=== PATIENT | female | born 1990 | race Caucasian/White ===

== ENCOUNTER 2019-12-05 09:10 | Emergency (ER) | payer SELFPAY ==
--- NOTE | 2019-12-05 11:03 | ED.PDOC ---
History of Present Illness - General Chief Complaint: Problem Stated Complaint: green vaginal discharge Time Seen by Provider: 12/05/19 11:00 Source: patient Exam Limitations: no limitations - History of Present Illness Initial Comments: PT HAS HAD A NEW SEXUAL PARTNER PAST 1 1/2 MOS. FINISHED HER PERIOD 2 D AGO. THIS MORNING SHE REMOVED HER TAMPON AND NOTICED GREEN D/C. SHE HAD AHD 2 D DYSURIA LAST WEEK, THEN TOOK 2 D OF LEFTOVER AMOXIL RX THROUGH TODAY. DYSURIA RESOLVED. DENIES DYSPAREUNIA. NO PELVIC PAIN. Timing/Duration: this morning Quality: other - NO PAIN Onset Location: vaginal Radiation: none Activites at Onset: none Prior abdominal problems: none Sexual intercourse history: less than 2 months ago Improving Factors: nothing Worsening Factors: nothing Associated Symptoms: denies symptoms Allergies/Adverse Reactions: Allergies Cefprozil [From Cefzil] Allergy (Verified 12/05/19 09:26) Home Medications: Ambulatory Orders Multiple Vitamins W/ Minerals [Multivitamin Adults] 1 tab PO DAILY 12/05/19 Sulfa/Trimeth 800/160 (Ds) Tab [Bactrim DS Tab] 1 unit PO BID #6 tab 12/05/19 Review of Systems - Review of Systems Constitutional: States: no symptoms reported EENTM: States: no symptoms reported Respiratory: States: no symptoms reported Cardiology: States: no symptoms reported Gastrointestinal/Abdominal: States: no symptoms reported Genitourinary: Denies: dysuria, frequency, hematuria Musculoskeletal: States: no symptoms reported Skin: States: no symptoms reported Neurological: States: no symptoms reported Endocrine: States: no symptoms reported Hematologic/Lymphatic: States: no symptoms reported All other Systems: Reviewed and Negative Past Medical History (General) - Patient Medical History Hx Seizures: No Hx Stroke: No Hx Dementia: No Hx Asthma: No Hx of COPD: No Hx Cardiac Disorders: No Hx Congestive Heart Failure: No Hx Pacemaker: No Hx Hypertension: No Hx Thyroid Disease: No Hx Diabetes: No Hx Gastroesophageal Reflux: No Hx Renal Disease: No Hx Cancer: No Hx of HIV: No Hx Hepatitis C: No Hx MRSA: No Surgical History: no surgical history, appendectomy, tonsillectomy - Vaccination History Hx Tetanus, Diphtheria Vaccination: No Hx Influenza Vaccination: No Hx Pneumococcal Vaccination: No - Social History Hx Alcohol Use: No Hx Substance Use: No Hx Substance Use Treatment: No Hx Depression: No - Female History Patient is a Female of Child Bearing Age (10 -59 yrs old): Yes Hx Last Menstrual Period: 11/29/19 Family Medical History - Family History Sister Family History: Unknown Living Status: Still Living Hx Cardiac Disease: Yes Physical Exam - Physical Exam General Appearance: Alert, No apparent distress Eyes, Ears, Nose, Throat Exam: PERRL/EOMI, normal ENT inspection Neck: non-tender, full range of motion Cardiovascular/Respiratory: regular rate, rhythm, no M/R/G Gastrointestinal/Abdominal: normal bowel sounds, non tender, soft, no organomegaly, no pulsatile mass Pelvic Exam: external exam normal, speculum exam normal, bimanual exam normal, no cerv. motion tender, no masses Back Exam: normal inspection, no CVA tenderness Extremity: normal range of motion, normal inspection Neurologic: alert, normal mood/affect Skin Exam: normal color, warm/dry Lymphatic: no adenopathy Progress - Results/Orders Results/Orders: UA = UTI. LEUK EST, WBC, RARE BACTERIA. BACTRIM. HCG NEG. SPECULUM EXAM NEG - NO PAIN, NO D/C. WET PREP AND GC/CHLAMYDIA PENDING (SEND OUT). LOW SUSPICION FOR STD, THUS RX FOR UTI. SAFE FOR DC TO HOME. I INSTRUCTED PT TO CALL IN 3 D FOR LAB RESULTS IF SHE HAS NOT HEARD BACK FROM THE ER. - EKG/XRAY/CT CT Ordered: No CT Interpretation Call Back: No Departure - Departure Clinical Impression: Vaginal discharge, Dysuria UTI (urinary tract infection) Qualifiers: Urinary tract infection type: acute cystitis Hematuria presence: without hematuria Qualified Code(s): N30.00 - Acute cystitis without hematuria Disposition: Discharge to Home or Self Care Condition: Good Departure Forms: ED Discharge - Pt. Copy, Patient Portal Self Enrollment Diet: resume usual diet Activity: increase activity as tolerated Prescriptions: Sulfa/Trimeth 800/160 (Ds) Tab [Bactrim DS Tab] 1 unit PO BID #6 tab Home Medications: Ambulatory Orders Multiple Vitamins W/ Minerals [Multivitamin Adults] 1 tab PO DAILY 12/05/19 Sulfa/Trimeth 800/160 (Ds) Tab [Bactrim DS Tab] 1 unit PO BID #6 tab 12/05/19
[2019-12-05 12:36] VITALS: BP 115/71; TEMP 97.1; O2SAT 98
== END 2019-12-05 12:35 | disposition home or self-care (01) ==
LOC: ER 09:10
DX: N30.00 Acute cystitis without hematuria (principal); N89.8 Other specified noninflammatory disorders of vagina; Z88.1 Allergy status to other antibiotic agents

== ENCOUNTER 2019-12-11 10:18 | Emergency (ER) | payer SELFPAY ==
--- NOTE | 2019-12-11 10:23 | ED.PDOC ---
History of Present Illness - General Time Seen by Provider: 12/11/19 10:23 Source: patient - History of Present Illness Initial Comments: 29 [id number]-[id number]-one female who presents with chief complaint of abnormal STD testing. Patient was seen here on 12/07/2019 with symptoms of green vaginal discharge in setting of a new sexual partner. She had a pelvic exam and STD testing performed. Results of the STD tests came back today which was positive for gonorrhea in the cervical swabs, negative for chlamydia. She reports vaginal discharge as well scant and more yellow in color. She denies any pelvic pain, abdominal pain, fevers, chills, vaginal bleeding, nausea, vomiting, diarrhea, dysuria, hematuria. She was given a prescription of Keflex for possible UTI but did not receive any treatment for gonorrhea or chlamydia at the last visit. LMP was 2 weeks ago. Allergies/Adverse Reactions: Allergies Cefprozil [From Cefzil] Allergy (Verified 12/05/19 09:26) Home Medications: Ambulatory Orders Multiple Vitamins W/ Minerals [Multivitamin Adults] 1 tab PO DAILY 12/05/19 Sulfa/Trimeth 800/160 (Ds) Tab [Bactrim DS Tab] 1 unit PO BID #6 tab 12/05/19 Review of Systems - Review of Systems Review of Systems: 12/11/19 10:35 as per HPI All other Systems: Reviewed and Negative Past Medical History (General) - Patient Medical History Hx Seizures: No Hx Stroke: No Hx Dementia: No Hx Asthma: No Hx of COPD: No Hx Cardiac Disorders: No Hx Congestive Heart Failure: No Hx Pacemaker: No Hx Hypertension: No Hx Thyroid Disease: No Hx Diabetes: No Hx Gastroesophageal Reflux: No Hx Renal Disease: No Hx Cancer: No Hx of HIV: No Hx Hepatitis C: No Hx MRSA: No - Vaccination History Hx Tetanus, Diphtheria Vaccination: No Hx Influenza Vaccination: No Hx Pneumococcal Vaccination: No - Social History Hx Alcohol Use: No Hx Substance Use: No Hx Substance Use Treatment: No Hx Depression: No - Female History Hx Last Menstrual Period: 11/29/19 Family Medical History - Family History Sister Family History: Unknown Living Status: Still Living Hx Cardiac Disease: Yes Physical Exam - Physical Exam General Appearance: Alert, Comfortable, No apparent distress Eye Exam: bilateral normal Ears, Nose, Throat: normal ENT inspection, normal pharynx Neck: non-tender, full range of motion, supple, normal inspection Respiratory: lungs clear, normal breath sounds, no respiratory distress, no accessory muscle use Cardiovascular/Chest: normal peripheral pulses, regular rate, rhythm, no edema, no gallop, no JVD, no murmur Peripheral Pulses: radial,right: 2+, radial,left: 2+ Gastrointestinal/Abdominal: non tender, soft, no organomegaly Back Exam: normal inspection, no CVA tenderness, no vertebral tenderness Extremity: normal range of motion, non-tender, normal inspection, no pedal edema , no calf tenderness, normal capillary refill, pelvis stable Neurologic: no motor/sensory deficits, alert, normal mood/affect, oriented x 3 Skin Exam: normal color, warm/dry Lymphatic: no adenopathy Progress - Progress Progress: 12/11/19 10:36 Acute gonococcal cervicitis -pt declines repeat pelvic exam today, just would like to be treated -Given Rocephin 250 mg IM and Azithromycin 1 g PO for empiric treatment of both GC and chlamydia -advised sexual partner will also need to be seen and treated -dc to home in good condition, return warnings discussed at length. F/u closely with PCP & forestry support specialist recommended Pal Todd MD Billing #[id number] Departure - Departure Clinical Impression: Cervicitis, acute gonococcal Time of Disposition: 10:29 Disposition: Discharge to Home or Self Care Condition: Good Instructions: Gonorrhea (DC) Diet: resume usual diet Activity: increase activity as tolerated Home Medications: Ambulatory Orders Multiple Vitamins W/ Minerals [Multivitamin Adults] 1 tab PO DAILY 12/05/19 Sulfa/Trimeth 800/160 (Ds) Tab [Bactrim DS Tab] 1 unit PO BID #6 tab 12/05/19 Additional Instructions: Your sexual partner will also need to be seen and treated for possible gonorrhea infection. I recommend no sexual intercourse until your partner is also appropriately treated and you are both without symptoms. Otherwise return to the ED if any concerning symptoms develop such as worsening abdominal or pelvic pain, worsening vaginal discharge, fevers, chills, etc... Follow-up with your primary care physician and CHART WRITER as recommended in the next 1 to 2 weeks for r epeat evaluation or sooner as needed.
[2019-12-11] MEDS ORDERED: AZITHROMYCIN 250 MG TAB PO ONE (10:28)
[2019-12-11 10:38] VITALS: BP 115/81; TEMP 97.8; O2SAT 98
[2019-12-11] MEDS ORDERED: LIDOCAINE 1% 2 ML VIAL INJ ONE (10:43)
== END 2019-12-11 11:00 | disposition home or self-care (01) ==
LOC: ER 10:18
DX: A54.03 Gonococcal cervicitis, unspecified (principal); Z88.8 Allergy status to other drugs, medicaments and biological substances
CPT/HCPCS: J0696; Q0144

== ENCOUNTER 2020-04-10 19:19 | Emergency (ER) | payer SELFPAY ==
--- NOTE | 2020-04-10 20:06 | ED.PDOC ---
History of Present Illness - General Chief Complaint: General Time Seen by Provider: 04/10/20 19:59 Source: patient Exam Limitations: no limitations - History of Present Illness Initial Comments: EXPOSURE TO GC, ASSYMPTOMATIC AT PRESENT, RECCENTLY TREATED FOR GC, CURRENT PARTNER WITH SYMPTOMS OF SAME. Timing/Duration: week Quality: mild Onset Location: unknown Radiation: none Activites at Onset: none Prior abdominal problems: none Sexual intercourse history: multiple partners Improving Factors: nothing Worsening Factors: nothing Associated Symptoms: denies symptoms Allergies/Adverse Reactions: Allergies Cefprozil [From Cefzil] Allergy (Verified 12/05/19 09:26) Home Medications: Ambulatory Orders Multiple Vitamins W/ Minerals [Multivitamin Adults] 1 tab PO DAILY 12/05/19 Sulfa/Trimeth 800/160 (Ds) Tab [Bactrim DS Tab] 1 unit PO BID #6 tab 12/05/19 Azithromycin [Zithromax] 1,000 mg PO ONCE #2 tab 04/10/20 Review of Systems - Review of Systems Constitutional: States: no symptoms reported EENTM: States: no symptoms reported Respiratory: States: no symptoms reported Cardiology: States: no symptoms reported Gastrointestinal/Abdominal: States: no symptoms reported Genitourinary: States: no symptoms reported Past Medical History (General) - Patient Medical History Hx Seizures: No Hx Stroke: No Hx Dementia: No Hx Asthma: No Hx of COPD: No Hx Cardiac Disorders: No Hx Congestive Heart Failure: No Hx Pacemaker: No Hx Hypertension: No Hx Thyroid Disease: No Hx Diabetes: No Hx Gastroesophageal Reflux: No Hx Renal Disease: No Hx Cancer: No Hx of HIV: No Hx Hepatitis C: No Hx MRSA: No - Vaccination History Hx Tetanus, Diphtheria Vaccination: No Hx Influenza Vaccination: No Hx Pneumococcal Vaccination: No - Social History Hx Alcohol Use: No Hx Substance Use: No Hx Substance Use Treatment: No Hx Depression: No - Female History Hx Last Menstrual Period: 11/29/19 Family Medical History - Family History Sister Family History: Unknown Living Status: Still Living Hx Cardiac Disease: Yes Physical Exam - Physical Exam General Appearance: Well Developed, Well Groomed, Well Hydrated, Well Nourished Cardiovascular/Respiratory: normal breath sounds, no respiratory distress Extremity: normal inspection Neurologic: alert, normal mood/affect, oriented x 3 Skin Exam: normal color, warm/dry Departure - Departure Clinical Impression: Urethritis Time of Disposition: 20:03 Disposition: Discharge to Home or Self Care Departure Forms: ED Discharge - Pt. Copy, Patient Portal Self Enrollment Instructions: Urethritis Prescriptions: Azithromycin [Zithromax] 1,000 mg PO ONCE #2 tab Home Medications: Ambulatory Orders Multiple Vitamins W/ Minerals [Multivitamin Adults] 1 tab PO DAILY 12/05/19 Sulfa/Trimeth 800/160 (Ds) Tab [Bactrim DS Tab] 1 unit PO BID #6 tab 12/05/19 Azithromycin [Zithromax] 1,000 mg PO ONCE #2 tab 04/10/20
[2020-04-10 20:15] VITALS: TEMP 97.8; O2SAT 97
[2020-04-10 21:30] VITALS: BP 118/70
== END 2020-04-10 21:04 | disposition home or self-care (01) ==
LOC: ER 19:19
DX: R36.9 Urethral discharge, unspecified (principal); Z86.19 Personal history of other infectious and parasitic diseases; Z88.1 Allergy status to other antibiotic agents

== ENCOUNTER 2020-04-30 21:15 | Emergency (ER) | payer SELFPAY ==
[2020-04-30 21:49] VITALS: TEMP 99.5; O2SAT 97
[2020-04-30] MEDS ORDERED: TETANUS,DIPHTHERIA,PERTUSSIS 1 EA SYG IM ONE (21:55)
[2020-04-30] MEDS ORDERED: CLINDAMYCIN PHOSPHATE 150 MG/ML VIAL IM ONE (21:55)
--- NOTE | 2020-04-30 21:58 | ED.PDOC ---
History of Present Illness - General Chief Complaint: Laceration Stated Complaint: Laceration to the Left arm Time Seen by Provider: 04/30/20 21:55 Source: patient, RN notes reviewed, Vital Signs reviewed Exam Limitations: no limitations - History of Present Illness Initial Comments: Patient is a 30-year-old white female who presents with a left upper arm laceration that occurred last night. Patient is complaining of pain to the area. She attempted to glue it shot earlier today and it is throbbing and the gauze that she placed over it is not stuck to the wound. Patient was drinking last night and does not remember cutting herself. She has a history of cutting. Patient was diagnosed at the age of 15 with bipolar disorder but has not been on meds for years. Patient will intermittently drink like this and drink to excess. As stated earlier, patient was drinking last night and does not remember cutting herself but she awoke in the morning with 2 cuts on her arm. There is one on her distal forearm that is very superficial and the one on her upper left forearm that is down through the dermis and into the fat. Patient complains of a throbbing pain over the side of the upper arm laceration that is constant and is moderate in intensity. It does not radiate. Pain is worse when she moves it or palpates the area. Nothing makes it feel better. Patient denies any suicidal ideation or homicidal ideation. Patient denies any significant change in her depression. She does not feel like she is having a manic episode right now. Patient states that at the current time she has no plans on harming herself and is not having suicidal thoughts.Patient contracts for safety here in the ED. Occurred: yesterday Severity: moderate Pain Location: upper extremity Method of Injury: unknown Improving Factors: nothing Worsening Factors: movement Loss of Consciousness: no loss of consciousness Associated Symptoms (Fall): denies symptoms Allergies/Adverse Reactions: Allergies Cefprozil [From Cefzil] Allergy (Verified 12/05/19 09:26) Home Medications: Ambulatory Orders Multiple Vitamins W/ Minerals [Multivitamin Adults] 1 tab PO DAILY 12/05/19 Sulfa/Trimeth 800/160 (Ds) Tab [Bactrim DS Tab] 1 unit PO BID #6 tab 12/05/19 Azithromycin [Zithromax] 1,000 mg PO ONCE #2 tab 04/10/20 Clindamycin HCl 300 mg PO Q6H #28 cap 04/30/20 Review of Systems - Review of Systems Constitutional: States: no symptoms reported, see HPI. Denies: chills, fever, malaise, weakness EENTM: States: no symptoms reported. Denies: eye pain, blurred vision, double vision Respiratory: States: no symptoms reported. Denies: cough, short of breath, wheezing Cardiology: States: no symptoms reported. Denies: chest pain, palpitations, syncope Gastrointestinal/Abdominal: States: no symptoms reported. Denies: abdominal pain, diarrhea, nausea, vomiting Genitourinary: States: no symptoms reported, discharge. Denies: dysuria, frequency Musculoskeletal: States: no symptoms reported. Denies: back pain, joint pain, neck pain Skin: States: see HPI, other - 2 lacerations. One on her left volar forearm that is superficial in nature. A second laceration across her left upper arm on the volar surface. Neurological: States: no symptoms reported. Denies: tingling, tremors, weakness Endocrine: States: no symptoms reported. Denies: increased hunger, increased thirst, increased urine Hematologic/Lymphatic: States: no symptoms reported. Denies: blood clots, easy bleeding All other Systems: Reviewed and Negative Past Medical History (General) - Patient Medical History Hx Seizures: No Hx Stroke: No Hx Dementia: No Hx Asthma: No Hx of COPD: No Hx Cardiac Disorders: No Hx Congestive Heart Failure: No Hx Pacemaker: No Hx Hypertension: No Hx Thyroid Disease: No Hx Diabetes: No Hx Gastroesophageal Reflux: No Hx Renal Disease: No Hx Cancer: No Hx of HIV: No Hx Hepatitis C: No Hx MRSA: No Surgical History: other - Vaccination History Hx Tetanus, Diphtheria Vaccination: No Hx Influenza Vaccination: No Hx Pneumococcal Vaccination: No Immunizations Up to Date: No - Social History Hx Tobacco Use: Yes - Half a pack a day Hx Chewing Tobacco Use: No Hx Alcohol Use: Yes Hx Substance Use: No Hx Substance Use Treatment: No Hx Depression: No Feels Threatened In Home Enviroment: No Feels Threatened In a Relationship: No Hx Physical Abuse: No Hx Emotional Abuse: No Hx Suspected Abuse: No - Female History Patient is a Female of Child Bearing Age (10 -59 yrs old): Yes Hx Last Menstrual Period: 07/29/20 Patient : No Family Medical History - Family History Sister Family History: Unknown Living Status: Still Living Hx Cardiac Disease: Yes Physical Exam - Physical Exam General Appearance: Alert, Anxious, Unkempt, Well Developed, Well Hydrated, Well Nourished Head Injury: no evidence of injury Eye Exam: bilateral normal ENT Exam: hearing grossly normal, no evidence of ENT injury, no dental injury Neck Exam: non-tender, full range of motion, normal alignment Cardiovascular/Respiratory: regular rate, rhythm, no M/R/G, normal peripheral pulses, no JVD, normal breath sounds, no respiratory distress Gastrointestinal/Abdominal: normal bowel sounds, non tender, soft, no organomegaly, no pulsatile mass Back Exam: normal inspection, no CVA tenderness, no vertebral tenderness Extremity Exam: normal range of motion, no pedal edema, tenderness - Left upper forearm has a 3 cm laceration through the dermis and into the fat. Bleeding is controlled. She is neurovascularly intact distally. She additionally has a 5 cm long very superficial abrasion to the left forearm. Neurologic: touch up edger II-XII nml as tested, no motor/sensory deficits, alert, normal mood/affect, oriented x 3 Skin Exam: normal color, warm/dry, other - In addition to the lacerations documented under the extremity exam, patient has we well healed self-inflicted forearm lacerations from when she was younger. - [place] Coma Score Best Eye Response (Roldan): (4) open spontaneously Best Verbal Response ([place]): (5) oriented Best Motor Response ([place]): (6) obeys commands [place] Total: 15 Progress - Progress Progress: Differential diagnosis: Bipolar, juan carlos, self-inflicted lacerations, depression among others. 04/30/20 22:21 Long discussion with patient about miles for safety and support systems. She has both. Patient states that she wants to follow-up with her primary care doctor because she needs to get back on medication for her bipolar. I have started patient on antibiotics for the laceration to her left upper arm. U nfortunately, it is been too long since the wound occurred and it is now considered to be contaminated and primary closure is not an option. Have started patient on wet-to-dry dressing changes twice daily. Patient instructed on needing to continue these until wound is completely healed over the next 10 days to 2 weeks. We will start patient on clindamycin for infection prevention. Patient is in agreement and understands plan of care. Jeffry Kong M.D. #[id number] Departure - Departure Clinical Impression: Self mutilating behavior, Blackout spell Time of Disposition: 22:23 Disposition: Discharge to Home or Self Care Condition: Good Departure Forms: ED Discharge - Pt. Copy, Patient Portal Self Enrollment Instructions: DI for Laceration Repair, Wound Care (DC), Depression, Adult (DC), Bipolar Disorder (DC) Diet: resume usual diet Activity: increase activity as tolerated Referrals: [facility]ACHINE [Active Staff] - 1-2 Weeks Prescriptions: Clindamycin HCl 300 mg PO Q6H #28 cap Home Medications: Ambulatory Orders Multiple Vitamins W/ Minerals [Multivitamin Adults] 1 tab PO DAILY 12/05/19 Sulfa/Trimeth 800/160 (Ds) Tab [Bactrim DS Tab] 1 unit PO BID #6 tab 12/05/19 Azithromycin [Zithromax] 1,000 mg PO ONCE #2 tab 04/10/20 Clindamycin HCl 300 mg PO Q6H #28 cap 04/30/20
[2020-04-30 22:29] VITALS: BP 110/70
== END 2020-04-30 22:29 | disposition home or self-care (01) ==
LOC: ER 21:15
DX: S41.112A Laceration without foreign body of left upper arm, initial encounter (principal); S51.812A Laceration without foreign body of left forearm, initial encounter; F31.9 Bipolar disorder, unspecified; Z91.5 Personal history of self-harm; X78.9XXA Intentional self-harm by unspecified sharp object, initial encounter; Z87.891 Personal history of nicotine dependence; Z88.1 Allergy status to other antibiotic agents; Y92.9 Unspecified place or not applicable
CPT/HCPCS: 90471; 90715; J3490